=== PATIENT | female | born 1970 | race Caucasian/White ===

== ENCOUNTER 2022-06-24 12:41 | Emergency (ER) | payer MEDICAID, OTHER ==
[~2022-06-24] VITALS: Ht 167.6 cm; Wt 83.9 kg
[2022-06-24 13:03] VITALS: BP 105/59
[2022-06-24] MEDS ORDERED: ACET-10509 PO (15:26)
[2022-06-24] MEDS ORDERED: PROM118S5 PO (15:26)
--- NOTE | 2022-06-24 15:40 | NUR ---
SWABBED PT FOR COVID AND FLU SENT TO LAB
[2022-06-24 15:41] VITALS: BP 115/65
--- NOTE | 2022-06-24 15:42 | NUR ---
Patient discharged with v/s stable. Written and verbal after care instructions given and explained. Patient alert, oriented and verbalized understanding of instructions. Ambulatory with steady gait. All questions addressed prior to discharge. ID band removed. Patient advised to follow up with PMD. Rx of TYLENOL, PROMETHAZINE given. Patient educated on indication of medication including possible reaction and side effects. Opportunity to ask questions provided and answered.
== END 2022-06-24 15:42 | disposition home or self-care (01) ==
LOC: MED 12:41
DX: J06.9 Acute upper respiratory infection, unspecified (principal); Z20.822 Contact with and (suspected) exposure to COVID-19; I10 Essential (primary) hypertension; Z79.899 Other long term (current) drug therapy
CPT/HCPCS: 71045; 99284

== ENCOUNTER 2023-09-09 15:02 | Emergency (ER) | payer OTHER ==
[~2023-09-09] VITALS: Ht 153.7 cm; Wt 69.9 kg
[~2023-09-09 15:02] MED LIST: ACET-10509 PO; PROM118S5 PO
[2023-09-09 15:06] VITALS: BP 145/73; PULSE 20; RESP 20; TEMP 97.5; O2SAT 100
[2023-09-09 15:30] VITALS: O2SAT 100
[2023-09-09 17:17] VITALS: TEMP 97.5
[2023-09-09 18:35] LABS: BASOPHILS % (AUTO) 0.4 % (0.0-2.0); EOSINOPHILS # (AUTO) 0.2 K/uL (0-0.4); EOSINOPHILS % (AUTO) 2.4 % (0.0-4.0); HEMATOCRIT 39.4 % (36-48); HEMOGLOBIN 13.5 g/dL (12.0-16.0); LYMPHOCYTES % (AUTO) 32.6 % (20.5-51.1); MEAN CORPUSCULAR HEMOGLOBIN 30 pg (27-31); MEAN CORPUSCULAR HGB CONC 34 g/dL (33-37); MEAN CORPUSCULAR VOLUME 87.7 fL (80-94); MONOCYTES # (AUTO) 0.4 K/uL (0.8-1.0); MONOCYTES % (AUTO) 6.2 % (1.7-9.3); NEUTROPHILS # (AUTO) 3.6 K/uL (1.8-7.7); NEUTROPHILS % (AUTO) 58.4 % (42.2-75.2); PLATELET COUNT (AUTO) 225 K/uL (140-450); RED BLOOD CELL COUNT(AUTO) 4.49 MIL/uL (4.20-5.40); RED CELL DISTRIBUTION WIDTH 12.6 % (11.6-13.7); WHITE BLOOD COUNT (AUTO) 6.2 K/uL (4.8-10.8)
[2023-09-09] MEDS: ACETAMINOPHEN EXTRA STRENGTH 500 MG TAB PO ONE (18:36)
[2023-09-09] MEDS: KETOROLAC 30 MG/ML VIAL IVP ONE (18:45)
[2023-09-09 18:49] LABS: ANION GAP 12.9 (8-16); CALCIUM 7.9 mg/dL (8.5-10.1); CARBON DIOXIDE 26.5 mmol/L (21-32); CREATININE 0.5 mg/dL (0.6-1.3); POTASSIUM 3.4 mmol/L (3.5-5.1)
[2023-09-09 19:06] LABS: ALBUMIN 4.2 g/dL (3.4-5.0); BILIRUBIN,DIRECT 0.1 mg/dL (0.0-0.3); TOTAL BILIRUBIN 0.4 mg/dL (0.0-1.0); TOTAL PROTEIN, SERUM 8.1 g/dL (6.4-8.2)
[2023-09-09 19:26] VITALS: O2SAT 97
[2023-09-09] MEDS ORDERED: MIRABULK PO (20:24)
[2023-09-09 20:34] VITALS: BP 111/64; PULSE 72; RESP 19; O2SAT 98
== END 2023-09-09 20:34 | disposition home or self-care (01) ==
LOC: MED 15:02
DX: K59.00 Constipation, unspecified (principal); I10 Essential (primary) hypertension; Z79.1 Long term (current) use of non-steroidal anti-inflammatories (NSAID); Z79.899 Other long term (current) drug therapy
CPT/HCPCS: 36415; 74176; 80048; 80076; 81025; 83690; 85025; 96374; 99285; J1885